=== PATIENT | male | born 1940 | race Caucasian/White ===

== ENCOUNTER 2025-04-23 08:48 | Emergency (ER) | payer MEDICARE, OTHER ==
[~2025-04-23] VITALS: Ht 170.2 cm; Wt 62.4 kg
--- NOTE | 2025-04-23 10:08 | DVH ---
CHEST RADIOGRAPH Indication: R/o PNA Technique: Frontal and lateral view of the chest was obtained Comparison: None FINDINGS: Lines and Tubes: None. Surgical clips overlie the gastroesophageal junction. Lungs: Clear Pleura: No effusion. No pneumothorax. Cardiomediastinal contours: Unremarkable Bones: Unremarkable IMPRESSION: 1. No evidence of acute disease.
--- NOTE | 2025-04-23 10:10 | DVH ---
CLINICAL INDICATION: fall, trauma, pain TECHNIQUE: XY R SHOULDER 2+ VIEW XRAY Comparison: None FINDINGS/IMPRESSION: : There is no evidence of acute fracture or dislocation. There is widening of the acromioclavicular and coracoclavicular joint space distance. This is suggest tati of shoulder separation/ligamentous injury. Clinical correlation advised. Moderate degenerative changes of the glenohumeral joint space.
--- NOTE | 2025-04-23 10:13 | ECG ---
[facility] Test Date: 2025-04-23 Test Time: 10:11:38 Pat Name: JOSE SALAZAR Department: Room: Gender: M Pcmh Specialist: : [id number] Requested By: ОЛЕГ GREENBERG Order Number: [id number] Reading MD: Preet Madera Measurements Intervals [place] Rate: 68 P: 0 UT: 0 QRS: -65 QRSD: 123 T: 22 QT: 403 QTc: 429 Interpretive Statements Atrial fibrillation Nonspecific IVCD with LAD Left ventricular hypertrophy Anterior Q waves, possibly due to LVH Artifact in lead(s) V5 Electronically Signed On 04-24-2025 22:59:59 PDT by Preet Madera Please click the below link to view image of tracing.
--- NOTE | 2025-04-23 10:17 | DVH ---
EXAM: CT HEAD WITHOUT CONTRAST INDICATION: Fall, trauma, pain TECHNIQUE: CT of the head without intravenous contrast. Radiation Dose : 1. Head: CT Dose: CTDI volume is 50.85 mGy. Dose-length product is 1.71 mGy*cm The dose indicators for CT are the volume Computed Tomography (CT) Dose Index (CTDIvol) and the Dose Length Product (DLP), and are measured in units of mGy and mGy-cm, respectively. These indicators are not patient dose, but values generated from the CT scanner acquisition factors. The report includes radiation exposure data for exposures received during this examination. COMPARISON: None FINDINGS: Small left frontal subdural hematoma. This measures 0.5 cm in maximal diameter. Bifrontal atrophy. The ventricles, sulci and cisterns are age appropriate. The frost-white differentiation is intact. Patchy periventricular and subcortical white matter hypoattenuation is nonspecific but may be related to small vessel ischemic disease. The visualized paranasal sinuses and mastoid air cells are clear. The surrounding soft tissues and osseous structures are unremarkable. IMPRESSION: Small left frontal subdural hematoma measuring 0.5 cm in maximal diameter. No mass effect or shifting of midline structures. Critical Result: Intracranial hemorrhage Findings discussed with , at 04/23/2025 10:14 AM, and acknowledged receipt and understanding of the f indings.
[2025-04-23 10:33] LABS: Hematocrit 38.0 % (41.0-53.0); Hemoglobin 12.7 g/dL (13.5-17.5); Mean Corpuscular Hemoglobin 28.3 pg (28.0-32.0); Mean Corpuscular Volume 84.6 fL (80.0-100.0); Nucleated Red Blood Cells % 0.0 %
[2025-04-23 10:42] LABS: Chloride 99 mmol/L (98-107); Potassium 4.8 mmol/L (3.5-5.1)
[2025-04-23 10:43] LABS: Anion Gap 11 (5-15); Carbon Dioxide 20 mmol/L (20-31)
[2025-04-23 10:44] LABS: Calcium 9.8 mg/dL (8.7-10.4)
[2025-04-23 10:49] LABS: BUN/Creatinine Ratio 12.6 (10.0-20.0); Blood Urea Nitrogen 15 mg/dL (9-23); Glucose 290 mg/dL (74-106); Sodium 130 mmol/L (136-145)
--- NOTE | 2025-04-23 10:50 | ED.PDOC ---
HPI (NEURO) HPI Comments 85-year-old male presents with right shoulder pain after a mechanical fall He experienced a mechanical fall last night in the kitchen, hitting his right shoulder against the glass wall. The pain is described as a vibrating sensation. He has a history of recent falls him with a past five days This morning he fell again after getting note from a living room chair to go to the bathroom landing on his shoulder and hitting his head. Denies any LOC. Denies persistent nausea Denies vomiting Denies photophobia, phonophobia Denies taking any blood thinner medication Denies focal loss of strength/sensation or changes in speech Lives by himself Chief Complaint: Upper Extremity Time Seen by MD: 09:06 Reviewed Notes: Nurses Notes, Medications, Allergies Information Source: Patient Mode of Arrival: Ambulatory Past Medical History PAST MEDICAL HISTORY: DM, High Lipids, HTN Surgical History: Denies all surgeries Family History Family History: Reviewed,noncontributory to illness Social History Smoker: Non-Smoker Alcohol: Denies ETOH Use Drugs: Denies Drug Use All Other Systems: Reviewed and Negative (PER HPI) Physical Exam General Appearance: No Apparent Distress, Normal HEENT: Head (3x3 cm hematoma to the right temporal ), Normal ENT Inspection, Pharynx Normal, TMs Normal Neck: Full Range of Motion, Non-Tender, Normal, Normal Inspection Respiratory: Chest Non-Tender, Lungs Clear, No Accessory Muscle Use, No Respiratory Distress, Normal Breath Sounds Cardiovascular: Irregular Breast Exam: Deferred Gastrointestinal: No Organomegaly, Non Tender, No Pulsatile Mass, Normal Bowel Sounds, Soft Genitalia: Deferred Pelvic: Deferred Rectal: Deferred Extremities: No calf tenderness, Normal capillary refill, Normal inspection, Normal range of motion, Non-tender, No pedal edema Musculoskeletal : Apperance: Normal 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 Was a procedure done?: No Differential Diagnosis (SZ) Seizure: Closed Head Injury Headache: Cluster X-Ray, Labs, Meds, VS Vital Signs Date Time Temp Pulse Resp B/P (MAP) Pulse Ox O2 Delivery O2 Flow Rate FiO2 04/23/25 11:19 70 18 98 Room Air* 0 21 04/23/25 11:17 96.6 70 18 177/83 (114) 98 96.6 04/23/25 10:11 68 04/23/25 08:49 98.0 82 19 152/99 99 98.0 Lab Test 04/23/25 10:52 04/23/25 09:59 Range/Units Urine Color Light-yellow Yellow Urine Clarity Clear Clear Urine pH 5.0 5.0-9.0 Urine Specific [place] 1.024 1.001-1.035 Urine Protein Negative Negative Urine Ketones 1+ H Negative Urine Blood Trace H Negative /uL Urine Nitrite Negative Negative Urine Bilirubin Negative Negative Urine Urobilinogen Normal Negative mg/dL Urine Leukocyte Esterase Negative Negative /uL Urine RBC 1 0 - 3 /hpf Urine Microscopic WBC < 1 0-3 /HPF Urine Squamous Epithelial Cells None seen <5 /hpf Urine Bacteria None seen None Seen /hpf Urine Mucus Few None Seen Urine Glucose 4+ H Normal mg/dL White Blood Count 12.3 H 4.4-10.8 10^3/uL Red Blood Count 4.49 L 4.5-5.90 10^6/uL Hemoglobin 12.7 L 13.5-17.5 g/dL Hematocrit 38.0 L 41.0-53.0 % Mean Corpuscular Volume 84.6 80.0-100.0 fL Mean Corpuscular Hemoglobin 28.3 28.0-32.0 pg Mean Corpuscular Hemoglobin Concent 33.4 32.0-36.0 g/dL Red Cell Distribution Width 16.6 H 11.8-14.3 % Platelet Count 298 140-450 10^3/uL Mean Platelet Volume 7.2 6.9-10.8 fL Neutrophils (%) (Auto) 84.4 H 37.0-80.0 % Lymphocytes (%) (Auto) 5.7 L 10.0-50.0 % Monocytes (%) (Auto) 9.7 0.0-12.0 % Eosinophils (%) (Auto) 0.0 0.0-7.0 % Basophils (%) (Auto) 0.2 0.0-2.0 % Neutrophils # (Auto) 10.4 H 1.6-8.6 10 ^3/uL Lymphocytes # (Auto) 0.7 0.4-5.4 10 ^3/uL Monocytes # (Auto) 1.2 0-1.3 10 ^3/uL Eosinophils # (Auto) 0 0-0.8 10 ^3/uL Basophils # (Auto) 0 0-0.2 10 ^3/uL Nucleated Red Blood Cells 0.0 % Sodium Level 130 L 136-145 mmol/L Potassium Level 4.8 3.5-5.1 mmol/L Chloride Level 99 98-107 mmol/L Carbon Dioxide Level 20 20-31 mmol/L Anion Gap 11 5-15 Blood Urea Nitrogen 15 9-23 mg/dL Creatinine 1.19 0.700-1.30 mg/dL Glomerular Filtration Rate Calc 61 >90 mL/min BUN/Creatinine Ratio 12.6 10.0-20.0 Serum Glucose 290 H 74-106 mg/dL Calcium Level 9.8 8.7-10.4 mg/dL Troponin I High Sensitivity 21 </=54 ng/L X-Ray, Labs, Meds, VS Comment Patient arrives alert and oriented, ABC's intact, afebrile, vital signs stable, saturating well in room air The following differential diagnoses were considered for this patient; subdural hematoma, subarachnoid hemorrhage, epidural hematoma, intraparenchymal bleed, herniation, skull fracture. The patient had a computed tomography of their head and results showed: Small left frontal subdural hematoma measuring 0.5 cm in maximal diameter. No mass effect or shifting of midline structures. Critical Result: Intracranial hemorrhage Right shoulder x-ray showed There is no evidence of acute fracture or dislocation. There is widening of the acromioclavicular and coracoclavicular joint space distance. This is suggestive of shoulder separation/ligamentous injury. Clinical correlation advised. Moderate degenerative changes of the glenohumeral joint space. CBC was ordered to exclude anemia, blood loss, or infection. BMP was ordered to exclude electrolyte abnormalities, renal failure, dehydration, hyperglycemia Troponin Urinalysis was ordered to rule out UTI or hematuria. 12 lead EKG interpretation: Atrial fibrillation Nonspecific IVCD with LAD Left ventricular hypertrophy Anterior Q waves, possibly due to LVH Artifact in lead(s) V5 10: 45 a.m. Based on the findings above the patient will be transferred for higher level of care. Spoke with the MD at [facility] and patient has been accepted for transfer Time of 1ST Reevaluation: 10:34 Reevaluation 1ST: Unchanged Patient Education/Counseling: Diagnosis, Treatment Family Education/Counseling: No Family Present Departure 1 Departure Time of Disposition: 10:45 Impression: Primary Impression: Subdural hematoma Additional Impressions: Acromioclavicular joint separation Qualified Codes: S43.101A - Unspecified dislocation of right a cromioclavicular joint, initial encounter Fall Qualified Codes: W19.XXXA - Unspecified fall, initial encounter A-fib Qualified Codes: I48.91 - Unspecified atrial fibrillation Disposition: 04 [facility] Condition: Critical Critical Care Note Critical Care Time?: No Stability Stability form required: Yes Stable for transfer: To designated facility Heart Score Heart Score: Heart Score Response (Comments) Value History N/A 0 EKG N/A 0 Age N/A 0 Risk Factors N/A 0 Troponin N/A 0 Total 0 ОЛЕГ GREENBERG NP Apr 23, 2025 10:50
[2025-04-23 11:06] LABS: Urine Protein, UAD Negative (Negative)
[2025-04-23 11:17] VITALS: BP 177/83; TEMP 96.6
[2025-04-23 11:19] VITALS: PULSE 70; RESP 18; O2SAT 98
== END 2025-04-23 11:42 | disposition short-term general hospital (02) ==
LOC: ER 08:48
DX: S06.5XAA Traumatic subdural hemorrhage with loss of consciousness status unknown, initial encounter (principal); S43.101A Unspecified dislocation of right acromioclavicular joint, initial encounter; W19.XXXA Unspecified fall, initial encounter; I48.91 Unspecified atrial fibrillation; E11.9 Type 2 diabetes mellitus without complications; I10 Essential (primary) hypertension; X58.XXXA Exposure to other specified factors, initial encounter; Y93.89 Activity, other specified; Y92.89 Other specified places as the place of occurrence of the external cause; Y99.8 Other external cause status
CPT/HCPCS: 36415; 70450; 71046; 73030; 80048; 81001; 84484; 85025; 93005